=== PATIENT | male | born 1945 | race Caucasian/White ===

== ENCOUNTER 2020-01-04 13:04 | Observation (INO) | payer OTHER ==
[~2020-01-04] VITALS: Ht 167.6 cm; Wt 81.3 kg
--- NOTE | 2020-01-04 13:04 | NUR ---
PT TO ROOM WITH STEADY GAIT
[2020-01-04 13:43] LABS: HEMATOCRIT 41.4 % (39.0-50.0); HEMOGLOBIN 14.1 g/dl (14.0-18.0); IMMATURE GRANULOCYTES 0.3 % (0.0-5.0); MEAN CELL VOLUME 93.7 fL CALC (80.0-100.0); MEAN CORPUSCULAR HGB 31.9 pG CALC (26.0-32.0); MEAN CORPUSCULAR HGB CONC 34.1 g/L CALC (32.0-36.0); NEUT# 5.57 thou/uL (1.82-7.42); RED BLOOD COUNT 4.42 mill/uL (4.70-6.10); RED CELL DISTRI WIDTH 13.8 % (11.5-15.5)
[2020-01-04] MEDS ORDERED: LACTULOSE PO (13:50)
[2020-01-04] MEDS ORDERED: METRONIDAZOLE500 MG PO (13:51)
[2020-01-04] MEDS ORDERED: CIPROFLOXACN500 MG PO (13:52)
[2020-01-04] MEDS ORDERED: NAPROXEN250 MG PO (13:52)
[2020-01-04] MEDS ORDERED: LASIX40 MG PO (13:53)
[2020-01-04] MEDS ORDERED: PSYLLIUM PO (13:53)
[2020-01-04] MEDS ORDERED: DULCOLAX10 MG RE (13:54)
--- NOTE | 2020-01-04 13:55 | NUR ---
PT RESTING ON STRETCHER; LARGE DISTENDED ABD NOTED; PT DENIES ANY PAIN OR SOB; PT ADVISED OF POC AND CONTINUED WAIT TIME; VSS; CALL LIGHT WITHIN REACH; WILL CONTINUE TO MONITOR
[2020-01-04 14:01] LABS: INTERNATIONAL NORMALIZED RATIO 1.3 RATIO (0.7-1.3); PROTHROMBIN TIME 13.1 SECONDS (9.0-12.5)
[2020-01-04 14:04] LABS: ALBUMIN 3.5 g/dL (3.2-5.0); ALKALINE PHOSPHATASE 195 u/l (38-126); AMYLASE 65 u/l (30-110); ANION GAP 10 (6-22 (CALC)); BUN 10 mg/dL (8-23); BUN/CREATININE RATIO 17 (12-20 (CALC)); CARBON DIOXIDE 27 mmol/l (22-30); CHLORIDE 99 mmol/l (95-108); CREATININE 0.6 mg/dL (0.7-1.3); GFR > 60 ML/MIN (>=60 (CALC)); GFR FOR AFR.AMER. > 60 ML/MIN (>=60 (CALC)); LIPASE 219 u/l (23-300); POTASSIUM 4.6 mmol/l (3.5-5.1); SGOT/AST 73 u/l (19-48); SODIUM 132 mmol/l (137-146); TOTAL PROTEIN 7.6 g/dL (6.3-8.2)
[2020-01-04 14:15] LABS: MYOGLOBIN 39 ng/mL (0 - 121)
[2020-01-04 14:24] LABS: URINE BLOOD DIPSTICK TRACE-INTACT (NEGATIVE); URINE COLOR YELLOW; URINE GLUCOSE - DIPSTICK NEGATIVE (NEGATIVE); URINE KETONE NEGATIVE (NEGATIVE); URINE LEUK ESTERASE NEGATIVE (NEGATIVE); URINE NITRITE - DIPSTICK NEGATIVE (Negative); URINE PH 5.5 (4.5-8.0); URINE PROTEIN - DIPSTICK NEGATIVE (NEG-TRACE); URINE SPECIFIC GRAVITY >=1.030; URINE UROBILINOGEN - DIPSTICK 0.2 E.U./dL (0.2)
[2020-01-04 14:27] LABS: URINE BILIRUBIN - DIPSTICK NEGATIVE (NEGATIVE)
--- NOTE | 2020-01-04 14:50 | NUR ---
PT RESTING ON STRETCHER; NO S/S OF DISTRESS NOTED; PT DENIES ANY NEEDS AT THIS TIME; VSS; CALL LIGHT WITHIN REACH; WILL CONTINUE TO MONITOR
--- NOTE | 2020-01-04 15:11 | NUR ---
DR SCHULTZ AT BEDSIDE TO DISCUSS POC AND PLAN TO ADMIT
--- NOTE | 2020-01-04 15:46 | NUR ---
PT AMB TO BR WITH STEADY GAIT
--- NOTE | 2020-01-04 16:40 | NUR ---
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
[2020-01-04 16:58] VITALS: BP 147/80
--- NOTE | 2020-01-04 17:00 | NUR ---
PT ARRIVES TO ROOM 261, ALERT AND ORIENTED X 3. LUNGS CLEAR, RA. ABDOMEN IS DISTENDED AND FIRM, LAST BM TODAY. PT VOIDING WNL. AT BEDSIDE.
--- NOTE | 2020-01-05 08:13 | NUR ---
Spoke with Radiology regarding paracentsis unable to be done today, on the schedule for tomorrow. Patient updated and charge nurse updated.
--- NOTE | 2020-01-05 08:15 | NUR ---
Head to toe assessment complete. Lung sounds dimished with fine crackles. Patient a&O x3 and able to known, 1 assist, Pain rated as 0 out of 10. Abd area hard and round due to acites. skin intact. iv intact and t bedside
--- NOTE | 2020-01-05 10:41 | NUR ---
DR. SENA AND NURSE Sparkle DIA RN. AT BEDSIDE FOR PARACENTESIS. CONSENT OBTAINED AND IN CHART.
--- NOTE | 2020-01-05 10:55 | NUR ---
DR. GARNICA AT BEDSIDE FOR EVAL ALONG WITH DR. SENA.
[2020-01-05 15:56] VITALS: BP 103/56
--- NOTE | 2020-01-05 17:24 | NUR ---
Patient resting in bed, No s/s of pain nor verbalized pain. No s/s of distress. at patient bedside.
[2020-01-05 18:30] VITALS: BP 140/60
--- NOTE | 2020-01-05 21:14 | NUR ---
PT AWAKE AND WATCHING TV W/LIGHTS ON LOW. NO S/O DISTRESS NOTED AT THIS TIME. LOC AND TALKATIVE. PT MEDICATED ORDERS PROVIDE AND ASSESSMENT COMPLETED AT THIS TIME. BOWEL SOUNDS ARE HYPERACTIVE/ABD DISTENDED AND FIRM. PT DEMONSTRATED USE OF IS AND ENCOURAGED TO CONTINUE 10X/HR WHILE AWAKE. PT REPORTS LOOSE STOOL THIS DAY. CALL LIGHT LEFT AT BEDSIDE AND PT ENCOURAGED TO CALL NEEDS ARISE.
--- NOTE | 2020-01-06 00:15 | NUR ---
PT SLEEPING, NO S/O DISTRESS NOTED. CALL LIGHT AT SIDE.
[2020-01-06 03:44] VITALS: BP 127/73
[2020-01-06 08:08] VITALS: BP 146/85
--- NOTE | 2020-01-06 08:08 | NUR ---
PT SITTING IN BED. A&O X3.NO DISTRESS NOTED. ABD FIRM AND DISTENDED BUT PT DENIES ANY PAIN AT THIS TIME. ASSESSMENT COMPLETED. DISCUSSED POC. CALL LIGHT IN REACH. CONTINUE TO MONITOR.
[2020-01-06] MEDS ORDERED: LASIX40 MG PO (10:47)
[2020-01-06] MEDS ORDERED: ALDACTONE50 MG PO (10:47)
--- NOTE | 2020-01-06 11:20 | NUR ---
PT SITTING IN BED WITH AT BEDSIDE. NO NEEDS AT THIS TIME. CALL LIGHT IN REACH. CONTINUE TO MONITOR.
--- NOTE | 2020-01-06 14:35 | NUR ---
DISCUSSED D/C INSTRUCTIONS WITH PT AND SPOUSE. IV REMOVED INTACT UPON REMOVAL.
[2020-01-06] MEDS ORDERED: GENERLAC10 GM/15 M PO (14:53)
--- NOTE | 2020-01-06 14:54 | NUR ---
Discharge instructions given. Patient verbalizes understanding of same. Discharged in stable condition via ambulatory to home with spouse. All belongings sent with pt.
[2020-01-06] MEDS ORDERED: TRAZODONE50 MG PO (17:53)
== END 2020-01-06 14:54 | disposition home or self-care (01) | DRG 433 ==
LOC: ED 13:04 → ED-I 15:15 → ED 15:26 → ED-I 15:27 → MS2 15:49
PROVIDERS: Emergency Medicine; ADMIT Internal Medicine; ATTEND Internal Medicine
PROC: 0W9G3ZZ Drainage of Peritoneal Cavity, Percutaneous Approach (ICD-10-PCS; principal; 2020-01-05)
DX: K70.31 Alcoholic cirrhosis of liver with ascites (principal); C22.9 Malignant neoplasm of liver, not specified as primary or secondary; Z72.89 Other problems related to lifestyle
CPT/HCPCS: G0378; P9047; Q9967